=== PATIENT | female | born 1940 | race Two or more races ===

== ENCOUNTER 2018-08-11 21:02 | Inpatient (IN) | payer MEDICARE, MEDICAID ==
[~2018-08-11] VITALS: Ht 167.6 cm; Wt 71.7 kg
[2018-08-11] MEDS ORDERED: ENALAPRIL MALEA20 MG ORAL (21:13)
[2018-08-11 21:14] VITALS: BP 170/77
[2018-08-11] MEDS ORDERED: Morphine Sulfate 4mg/ml Inj (IV/IM USE ONLY) IVP ONE (21:30)
[2018-08-11] MEDS ORDERED: Isovue-300 100ml vial INJ PRN (21:30)
[2018-08-11 21:51] LABS: APPEARANCE,URINE SLIGHTLY CLOUDY; BILIRUBIN, URINE NEGATIVE (NEGATIVE); GLUCOSE, URINE (UA) NEGATIVE (NEGATIVE); KETONES,URINE NEGATIVE (NEGATIVE); LEUKOCYTE ESTERASE ,URINE 3+ (NEGATIVE); NITRITE,URINE NEGATIVE (NEGATIVE); PH,URINE 7 (4.5-8.0); PROTEIN,URINE 3+ (NEGATIVE); UROBILINOGEN,URINE 1 MG/DL (0.0-1.0)
[2018-08-11 22:03] LABS: COLOR,URINE RED
[2018-08-11 22:15] VITALS: BP 153/71
[2018-08-11 22:24] LABS: BASOPHILS % (AUTO) 0.5 % (0.0-2.0); EOSINOPHILS % (AUTO) 0.8 % (0.0-3.0); HEMATOCRIT 41.2 % (37.0-47.0); LYMPHOCYTES % (AUTO) 18.3 % (20.0-45.0); MEAN CORPUSCULAR VOLUME 86 FL (80-99); MONOCYTES % (AUTO) 6.1 % (1.0-10.0); NEUTROPHILS % (AUTO) 74.3 % (45.0-75.0); PLATELET COUNT 242 K/UL (150-450); RED BLOOD COUNT 4.79 M/UL (4.20-5.40); WHITE BLOOD COUNT 8.9 K/UL (4.8-10.8)
[2018-08-11 22:28] LABS: ANION GAP 10 mmol/L (5-15); BLOOD UREA NITROGEN 13 mg/dL (7-18); CALCIUM 9.2 MG/DL (8.5-10.1); CARBON DIOXIDE 27 MMOL/L (21-32); CHLORIDE 106 MMOL/L (98-107); CREATININE 0.7 MG/DL (0.55-1.30); POTASSIUM 3.2 MMOL/L (3.5-5.1); SODIUM 143 MMOL/L (136-145)
[2018-08-11 22:33] LABS: ALANINE AMINOTRANSFERASE 42 U/L (12-78); ALBUMIN 3.2 G/DL (3.4-5.0); ALBUMIN/GLOBULIN RATIO 0.8 (1.0-2.7); ALKALINE PHOSPHATASE 125 U/L (46-116); ASPARTATE AMINO TRANSFERASE 27 U/L (15-37); BILIRUBIN,TOTAL 0.5 MG/DL (0.2-1.0)
[2018-08-11] MEDS ORDERED: Hydromorphone 0.5mg/0.5ml inj IVP ONE (23:30)
[2018-08-11 23:48] VITALS: BP 164/60
[2018-08-12] VITALS (7 sets, daily range): BP systolic 136–166; BP diastolic 64–101
[2018-08-12] MEDS ORDERED: cefTRIAXone 1 GM in NS 55 ML IVPB ONE ×2
--- NOTE | 2018-08-12 00:14 | Emergency Room Report ---
History of Present Illness General Chief Complaint: Female Urogenital Problems Source: Patient, Family Member Present Illness HPI Patient noted blood in her urine. This started this morning. She had some pain in her back yesterday. In addition to that she's got some pain throughout her abdomen and left flank. She's never had this problem before. She denies any fevers but has felt feverish. She also felt chills. She's felt nauseated without any vomiting or diarrhea. She states she has dysuria also. The pain is 9/10 and constant. Is not worse when she changes position. No diarrhea. She has arthritis and has an ibrahima wrap on her L knee. It has been causing pain. No warmth or skin changes there. Allergies: Uncoded Allergies: PENICILLN (Allergy, Unknown, 08/11/18) Patient History Past Medical History: see triage record, HTN, other - rheumatoid arthritis, hyperlipidemia Social History: Denies: smoking, alcohol use Social History Narrative with daughter Now: No Reviewed Nursing Documentation: PMH: Agreed; PSxH: Agreed Review of Systems All Other Systems: negative except mentioned in HPI Physical Exam Vital Signs Date Time Temp Pulse Resp B/P (MAP) Pulse Ox O2 Delivery O2 Flow Rate FiO2 08/11/18 21:06 99.2 99 16 180/100 97 Room Air 99.1 Sp02 EP Interpretation: reviewed, normal General Appearance: well appearing, no apparent distress, GCS 15 Head: normocephalic, atraumatic Eyes: bilateral eye normal inspection, bilateral eye PERRL ENT: moist mucus membranes Neck: supple Respiratory: lungs clear, normal breath sounds Cardiovascular #1: regular rate, rhythm Cardiovascular #2: 2+ radial (R) Gastrointestinal: normal inspection, normal bowel sounds, no mass, non- distended, tenderness - L flank anteriorly Musculoskeletal: gait/station normal, normal range of motion, other - lumbar tenderness, ibrahima on L knee Neurologic: alert, oriented x3, grossly normal Psychiatric: mood/affect normal Skin: warm/dry, other - small ulcer R little toe Medical Decision Making Diagnostic Impression: Primary Impression: Flank pain Additional Impressions: Hematuria Qualified Codes: R31.0 - Gross hematuria Bilateral renal cysts Hypokalemia ER Course Patient presents with back pain and hematuria. DDx; stone, CA, UTI, pyelonephritis, AAA amongst others. Evaluation with EKG, CT abdomen/pelvis and labs. Patient treated with IV hydration and analgesia. Labs with normal WBC, H/H. CMP with minimally elevated glucose, alk phos. UA with hematuria without significant pyuria. CT with post jaun changes and renal cysts. High renal stone R. Pain still significant. Dilaudid given. Stone could cause this, however, it seems pain more on L. As still with significant pain needs observation and repeat evaluation and possible consultation from urology. Patient admitted med Dr. Neumann, Dr. Esparza contacted. Dilaudid repeated with improvement. Laboratory Tests Test 08/11/18 21:25 08/11/18 21:45 Urine Color Red Urine Appearance Slightly cloudy Urine pH 7 (4.5-8.0) Urine Specific [place] 1.010 (1.005-1.035) Urine Protein 3+ (NEGATIVE) H Urine Glucose (UA) Negative (NEGATIVE) Urine Ketones Negative (NEGATIVE) Urine Blood 5+ (NEGATIVE) H Urine Nitrite Negative (NEGATIVE) Urine Bilirubin Negative (NEGATIVE) Urine Urobilinogen 1 MG/DL (0.0-1.0) H Urine Leukocyte Esterase 3+ (NEGATIVE) H Urine RBC Tntc /HPF (0 - 2) H Urine WBC 5-10 /HPF (0 - 2) H Urine Squamous Epithelial Cells Few /LPF (NONE/OCC) Urine Bacteria Moderate /HPF (NONE) H White Blood Count 8.9 K/UL (4.8-10.8) Red Blood Count 4.79 M/UL (4.20-5.40) Hemoglobin 14.0 G/DL (12.0-16.0) Hematocrit 41.2 % (37.0-47.0) Mean Corpuscular Volume 86 FL (80-99) Mean Corpuscular Hemoglobin 29.2 PG (27.0-31.0) Mean Corpuscular Hemoglobin Concent 33.9 G/DL (32.0-36.0) Red Cell Distribution Width 11.0 % (11.6-14.8) L Platelet Count 242 K/UL (150-450) Mean Platelet Volume 8.6 FL (6.5-10.1) Neutrophils (%) (Auto) 74.3 % (45.0-75.0) Lymphocytes (%) (Auto) 18.3 % (20.0-45.0) L Monocytes (%) (Auto) 6.1 % (1.0-10.0) Eosinophils (%) (Auto) 0.8 % (0.0-3.0) Basophils (%) (Auto) 0.5 % (0.0-2.0) Prothrombin Time 10.5 SEC (9.30-11.50) Prothrombin Time INR 1.0 (0.9-1.1) PTT 30 SEC (23-33) Sodium Level 143 MMOL/L (136-145) Potassium Level 3.2 MMOL/L (3.5-5.1) L Chloride Level 106 MMOL/L (98-107) Carbon Dioxide Level 27 MMOL/L (21-32) Anion Gap 10 mmol/L (5-15) Blood Urea Nitrogen 13 mg/dL (7-18) Creatinine 0.7 MG/DL (0.55-1.30) Estimate Glomerular Filtration Rate mL/min (>60) Glucose Level 110 MG/DL (74-106) H Uric Acid 4.6 MG/DL (2.6-7.2) Calcium Level 9.2 MG/DL (8.5-10.1) Total Bilirubin 0.5 MG/DL (0.2-1.0) Aspartate Amino Transferase (AST) 27 U/L (15-37) Alanine Aminotransferase (ALT) 42 U/L (12-78) Alkaline Phosphatase 125 U/L (46-116) H Troponin I 0.000 ng/mL (0.000-0.056) Total Protein 7.2 G/DL (6.4-8.2) Albumin 3.2 G/DL (3.4-5.0) L Globulin 4.0 g/dL Albumin/Globulin Ratio 0.8 (1.0-2.7) L Lipase 150 U/L (73-393) EKG Diagnostic Results Rate: normal Rhythm: NSR ST Segments: no acute changes Rhythm Strip Diag. Results EP Interpretation: yes Rhythm: NSR, no PVC's, no ectopy CT/MRI/US Diagnostic Results CT/MRI/US Diagnostic Results : Imaging Test Ordered: abd pelvis Impression Bi-basilar atelectasis and left lower lobe 6 mm nodule. Post cholecystectomy. Bilateral renal hypodensities lesions measuring up to 2.2 cm on the left which could be a cyst with several septations. Right intrarenal 3 mm calculus. Diverticulosis without diverticulitis. Right fat-containing inguinal hernia. Last Vital Signs Date Time Temp Pulse Resp B/P (MAP) Pulse Ox O2 Delivery O2 Flow Rate FiO2 08/12/18 02:41 Room Air 08/12/18 01:30 97.6 80 15 141/81 94 97.6 Status: improved Disposition: ADMITTED INPATIENT Condition: Serious Referrals: NON PHYSICIAN (PCP) Mauri Freeman M.D. Aug 12, 2018 00:14
[2018-08-12] MEDS ORDERED: Hydromorphone 0.5mg/0.5ml inj IVP ONE ×2 (00:30)
[2018-08-12] MEDS ORDERED: Hydromorphone 0.5mg/0.5ml inj IVP PRN (03:15)
[2018-08-12] MEDS ORDERED: Enoxaparin 40mg Inj SUBQ SCH (09:00)
[2018-08-12 09:50] LABS: BASOPHILS % (AUTO) 0.4 % (0.0-2.0); EOSINOPHILS % (AUTO) 0.9 % (0.0-3.0); HEMATOCRIT 39.4 % (37.0-47.0); HEMOGLOBIN 13.2 G/DL (12.0-16.0); MEAN CORPUSCULAR VOLUME 85 FL (80-99); MONOCYTES % (AUTO) 5.7 % (1.0-10.0); PLATELET COUNT 212 K/UL (150-450); RED BLOOD COUNT 4.63 M/UL (4.20-5.40); RED CELL DISTRIBUTION WIDTH 11.2 % (11.6-14.8); WHITE BLOOD COUNT 6.9 K/UL (4.8-10.8)
[2018-08-12 10:05] LABS: ANION GAP 8 mmol/L (5-15); BLOOD UREA NITROGEN 12 mg/dL (7-18); CALCIUM 8.7 MG/DL (8.5-10.1); CARBON DIOXIDE 27 MMOL/L (21-32); CHLORIDE 109 MMOL/L (98-107); CREATININE 0.6 MG/DL (0.55-1.30); POTASSIUM 3.4 MMOL/L (3.5-5.1); SODIUM 144 MMOL/L (136-145)
--- NOTE | 2018-08-12 11:33 | Consultation ---
History of Present Illness General Date patient seen: Aug 12, 2018 Chief Complaint: Female Urogenital Problems Reason for Consultation: abdominal pain Present Illness HPI 78 year old female presented to ED with complaints of abdominal discomfort, nausea, and blood in urine. Admitted for care and management. Surgery called to evaluate for abdominal pain. Patient seen, chart reviewed, patient examined. States that since admission abdominal pain has resolved. was cramping mid abdominal discomfort and left flank pain. 01/03. currently only has discomfort with palpation. intermittent nausea but no emesis. no changes in bowel habits. did note blood in urine which prompted ED visit. Allergies: Uncoded Allergies: PENICILLN (Allergy, Unknown, 08/11/18) Medication History Scheduled Enalapril Maleate* (Enalapril Maleate*), 20 MG ORAL OD, (Reported) Patient History History Provided By: Patient, Family Member, PMD Healthcare decision maker Resuscitation status Full Code Advanced Directive on File Past Medical/Surgical History Past Medical/Surgical History: (1) Hypokalemia (2) Hematuria (3) Flank pain (4) Bilateral renal cysts (5) Pulmonary nodule Review of Systems All Other Systems: negative except mentioned in HPI Physical Exam General Appearance: no apparent distress Lines, tubes and drains: peripheral HEENT: mucous membranes moist Neck: normal inspection Respiratory/Chest: normal breath sounds, no respiratory distress, no accessory muscle use Cardiovascular/Chest: normal rate, regular rhythm Abdomen: normal bowel sounds, soft, no organomegaly, no mass, tender - mild tenderness in epigastric region Extremities: normal inspection Skin Exam: warm/dry Neurologic: alert, oriented x 3 Last 24 Hour Vital Signs Date Time Temp Pulse Resp B/P (MAP) Pulse Ox O2 Delivery O2 Flow Rate FiO2 08/12/18 09:13 145/75 08/12/18 09:00 Room Air 08/12/18 08:00 98.9 77 18 136/68 (90) 95 98.9 08/12/18 04:00 98.8 74 18 138/64 (88) 94 98.8 08/12/18 02:41 Room Air 08/12/18 02:10 97.9 78 19 139/79 (99) 94 97.9 08/12/18 01:30 97.6 80 15 141/81 94 Room Air 97.6 08/12/18 01:30 97.6 80 15 141/81 94 Room Air 08/12/18 00:45 99.2 08/11/18 23:48 75 20 164/60 100 08/11/18 23:35 99.2 08/11/18 22:30 99.2 08/11/18 22:15 76 18 153/71 95 Room Air 08/11/18 22:00 99.2 08/11/18 21:14 99.1 85 16 170/77 97 Room Air 99.1 08/11/18 21:06 99.2 99 16 180/100 97 Room Air 99.1 Intake and Output 08/11/18 08/12/18 19:00 07:00 Intake Total 225 ml Balance 225 ml Intake IV Total 225 ml # Voids 2 Laboratory Tests Test 08/11/18 21:25 08/11/18 21:45 08/12/18 09:25 Urine Color Red Urine Appearance Slightly cloudy Urine pH 7 (4.5-8.0) Urine Specific [place] 1.010 (1.005-1.035) Urine Protein 3+ (NEGATIVE) H Urine Glucose (UA) Negative (NEGATIVE) Urine Ketones Negative (NEGATIVE) Urine Blood 5+ (NEGATIVE) H Urine Nitrite Negative (NEGATIVE) Urine Bilirubin Negative (NEGATIVE) Urine Urobilinogen 1 MG/DL (0.0-1.0) H Urine Leukocyte Esterase 3+ (NEGATIVE) H Urine RBC Tntc /HPF (0 - 2) H Urine WBC 5-10 /HPF (0 - 2) H Urine Squamous Epithelial Cells Few /LPF (NONE/OCC) Urine Bacteria Moderate /HPF (NONE) H White Blood Count 8.9 K/UL (4.8-10.8) 6.9 K/UL (4.8-10.8) Red Blood Count 4.79 M/UL (4.20-5.40) 4.63 M/UL (4.20-5.40) Hemoglobin 14.0 G/DL (12.0-16.0) 13.2 G/DL (12.0-16.0) Hematocrit 41.2 % (37.0-47.0) 39.4 % (37.0-47.0) Mean Corpuscular Volume 86 FL (80-99) 85 FL (80-99) Mean Corpuscular Hemoglobin 29.2 PG (27.0-31.0) 28.5 PG (27.0-31.0) Mean Corpuscular Hemoglobin Concent 33.9 G/DL (32.0-36.0) 33.5 G/DL (32.0-36.0) Red Cell Distribution Width 11.0 % (11.6-14.8) L 11.2 % (11.6-14.8) L Platelet Count 242 K/UL (150-450) 212 K/UL (150-450) Mean Platelet Volume 8.6 FL (6.5-10.1) 9.5 FL (6.5-10.1) Neutrophils (%) (Auto) 74.3 % (45.0-75.0) 78.0 % (45.0-75.0) H Lymphocytes (%) (Auto) 18.3 % (20.0-45.0) L 15.0 % (20.0-45.0) L Monocytes (%) (Auto) 6.1 % (1.0-10.0) 5.7 % (1.0-10.0) Eosinophils (%) (Auto) 0.8 % (0.0-3.0) 0.9 % (0.0-3.0) Basophils (%) (Auto) 0.5 % (0.0-2.0) 0.4 % (0.0-2.0) Prothrombin Time 10.5 SEC (9.30-11.50) Prothromb Time International Ratio 1.0 (0.9-1.1) Activated Partial Thromboplast Time 30 SEC (23-33) Sodium Level 143 MMOL/L (136-145) 144 MMOL/L (136-145) Potassium Level 3.2 MMOL/L (3.5-5.1) L 3.4 MMOL/L (3.5-5.1) L Chloride Level 106 MMOL/L (98-107) 109 MMOL/L (98-107) H Carbon Dioxide Level 27 MMOL/L (21-32) 27 MMOL/L (21-32) Anion Gap 10 mmol/L (5-15) 8 mmol/L (5-15) Blood Urea Nitrogen 13 mg/dL (7-18) 12 mg/dL (7-18) Creatinine 0.7 MG/DL (0.55-1.30) 0.6 MG/DL (0.55-1.30) Estimat Glomerular Filtration Rate mL/min (>60) mL/min (>60) Glucose Level 110 MG/DL (74-106) H 106 MG/DL (74-106) Uric Acid 4.6 MG/DL (2.6-7.2) Calcium Level 9.2 MG/DL (8.5-10.1) 8.7 MG/DL (8.5-10.1) Total Bilirubin 0.5 MG/DL (0.2-1.0) Aspartate Amino Transf (AST/SGOT) 27 U/L (15-37) Alanine Aminotransferase (ALT/SGPT) 42 U/L (12-78) Alkaline Phosphatase 125 U/L (46-116) H Troponin I 0.000 ng/mL (0.000-0.056) Total Protein 7.2 G/DL (6.4-8.2) Albumin 3.2 G/DL (3.4-5.0) L Globulin 4.0 g/dL Albumin/Globulin Ratio 0.8 (1.0-2.7) L Lipase 150 U/L (73-393) Height (Feet): 5 Height (Inches): 6.00 Weight (Pounds): 158 Medications Current Medications Medications (Trade) Dose Ordered Sig/Marta Route PRN Reason Start Time Stop Time Status Last Admin Dose Admin Acetaminophen (Tylenol) 650 mg Q4H PRN ORAL Mild Pain (Pain Scale 1-3) 08/12/18 03:15 09/11/18 03:14 Ceftriaxone Sodium 1 gm/ Dextrose 55 ml @ 110 mls/hr Q24H IVPB 08/12/18 22:00 08/19/18 21:59 Dextrose (Dextrose 50%) 25 ml Q30M PRN IV Hypoglycemia 08/12/18 03:15 09/11/18 03:14 Dextrose (Dextrose 50%) 50 ml Q30M PRN IV Hypoglycemia 08/12/18 03:15 09/11/18 03:14 Dextrose/ Electrolytes 1,000 ml @ 75 mls/hr [id number] IV 08/12/18 04:00 09/11/18 03:59 08/12/18 03:40 Enalapril Maleate (Vasotec) 10 mg EVERY 12 HOURS ORAL 08/12/18 09:00 09/11/18 08:59 08/12/18 09:13 Enoxaparin Sodium (Lovenox) 40 mg Q24H SUBQ 08/12/18 09:00 09/11/18 08:59 Famotidine (Pepcid) 40 mg DAILY ORAL 08/12/18 09:00 09/11/18 08:59 08/12/18 09:10 Hydromorphone HCl (Dilaudid) 0.5 mg Q4H PRN IVP For Pain 08/12/18 03:15 08/19/18 03:14 Ondansetron HCl (Zofran) 4 mg Q6H PRN IVP Nausea & Vomiting 08/12/18 03:15 09/11/18 03:14 Assessment/Plan Problem List: (1) Flank pain Assessment & Plan: abdominal pain / left flank pain. resolving since admission. +nausea. no emesis no acute surgical intervention necessary likely GI related pending imaging. trend labs thank you. will follow with recs. ICD Codes: R10.9 - Unspecified abdominal pain SNOMED: [id number] Status: stable Steve Tolbert Aug 12, 2018 11:33
--- NOTE | 2018-08-12 14:00 | Diagnostic Imaging Report ---
Clinical Indication: Abdominal pain and hematuria Technique: No oral contrast utilized, per emergency room physician request IV administration nonionic contrast. Venous phase spiral acquisition obtained through the abdomen and pelvis. Multiplanar reconstructions were generated. Total dose length product 656.46 and 195 mGycm. CTDIvol(s) 13.65 and 12.64 mGy. Dose reduction achieved using automated exposure control Comparison: none Findings: There is a 3 mm calculus in the lower pole of the right renal collecting system. There are parapelvic and cortical cysts on the left. There are bilateral subcentimeter low-attenuation renal lesions which are too small to characterize. No hydronephrosis or ureteral calculi demonstrated. The bladder is grossly unremarkable. The liver demonstrates equivocal slight surface nodularity inferiorly, is normal in size. There are a few subcentimeter low-attenuation liver lesions in the left lobe, too small to characterize. A punctate calcification is also seen in the left lobe. There is evidence of prior cholecystectomy. The extrahepatic bile ducts and central intrahepatic bile ducts are mildly dilated. No downstream obstructive lesion is demonstrated. The pancreas, spleen, adrenals are unremarkable. No retroperitoneal or mesenteric mass or adenopathy. Normal uterus and adnexal structures. No pelvic mass or adenopathy. There is colonic diverticulosis. No evidence of diverticulitis. No small bowel distention. No free or loculated intraperitoneal gas or fluid. The appendix is not definitely identified, but no findings to suggest acute appendicitis are evident. There is a tiny umbilical hernia which contains only fat. There is a small right inguinal hernia which contains only fat. The distal esophagus and stomach are unremarkable. There is a duodenal diverticulum. The included lung bases demonstrate groundglass opacity, interstitial septal thickening, and compressive atelectatic changes. There is a 6 mm subpleural nodule in the posterior medial left lung base. The heart is mildly enlarged. The bones demonstrate degenerative spondylosis changes. Impression: 6 mm left lower lobe lung nodule. Recommend further CT follow-up in 6-12 months per Fleischner guidelines Basilar pulmonary parenchymal groundglass opacities, interstitial septal thickening, compressive atelectatic changes. Groundglass opacities and interstitial changes could indicate congestive heart failure 3 mm nonobstructive right lower pole renal calyceal calculus No other acute renal abnormality or acute findings to suggest etiology of stated clinical history of hematuria Left renal and parapelvic cysts. Subcentimeter low-attenuation renal lesions which are too small to characterize, most likely benign simple cortical cysts. No further follow-up necessary Equivocal hepatic surface nodularity, could indicate early cirrhotic change. Correlate with clinical history and findings Extrahepatic and central intrahepatic biliary ductal dilatation. No definite downstream obstructive lesion. Suspect related to age and postcholecystectomy state, but occult downstream obstruction not excludable. Correlate with liver function tests, consider MRCP or nuclear medicine biliary scan for further evaluation if clinically indicated Subcentimeter low-attenuation liver lesions, too small to characterize, most likely benign simple cysts or bile hamartomas Colonic diverticulosis. No evidence of diverticulitis Other findings as noted, including degenerative spondylosis, cardiomegaly, small fat-containing umbilical and right inguinal hernias, duodenal diverticulum, old granulomatous disease within the liver This agrees with the preliminary interpretation provided overnight by [facility] teleradiology service. The CT scanner at [facility] is accredited by the [employer] and the scans are performed using protocols designed to limit radiation exposure to as low as reasonably achievable to attain images of sufficient resolution adequate for diagnostic evaluation.
--- NOTE | 2018-08-12 16:00 | Cardiology Report ---
APPROVED REPORT EKG Measurement Heart [id number] [place] [id number]-1 [id number] Normal sinus rhythm Incomplete right bundle branch block Nonspecific ST and T wave abnormality Abnormal ECG
--- NOTE | 2018-08-12 18:31 | Consultation ---
Consult Note Consult Note 78-year-old female presents with abdominal discomfort nausea and blood in the urine. The patient now admitted for further evaluation. The patient appears to be fairly poor historian. The patient did undergo CT of the abdomen. Incidentally a 6 mm left lower lobe lung nodule was noted. The patient also has evidence of parenchymal groundglass opacities with interstitial septal thickening and atelectatic changes. There are no documented pulmonary changes from prior and no prior pulmonary history. The patient currently denies shortness of breath cough sputum production or hemoptysis Past medical history Renal cysts, hypertension, Social history no clear history of smoking or drinking reported, patient is a full code, patient is retired Medications/allergies reviewed and reconciled Review of system All 10 points reviewed and appeared to be otherwise negative Physical examination vital signs 136/68, 77, 99, 18, 95% on room air WDWN NAD clear breath sounds bilaterally without rhonchi or wheeze [id number] without MRG NABS nontender no HSM no CCE nonfocal mild confusion Labs Test 08/11/18 21:25 08/11/18 21:45 08/12/18 09:25 Urine Color Red Urine Appearance Slightly cloudy Urine pH 7 (4.5-8.0) Urine Specific [place] 1.010 (1.005-1.035) Urine Protein 3+ (NEGATIVE) Urine Glucose (UA) Negative (NEGATIVE) Urine Ketones Negative (NEGATIVE) Urine Blood 5+ (NEGATIVE) Urine Nitrite Negative (NEGATIVE) Urine Bilirubin Negative (NEGATIVE) Urine Urobilinogen 1 MG/DL (0.0-1.0) Urine Leukocyte Esterase 3+ (NEGATIVE) Urine RBC Tntc /HPF (0 - 2) Urine WBC 5-10 /HPF (0 - 2) Urine Squamous Epithelial Cells Few /LPF (NONE/OCC) Urine Bacteria Moderate /HPF (NONE) White Blood Count 8.9 K/UL (4.8-10.8) 6.9 K/UL (4.8-10.8) Red Blood Count 4.79 M/UL (4.20-5.40) 4.63 M/UL (4.20-5.40) Hemoglobin 14.0 G/DL (12.0-16.0) 13.2 G/DL (12.0-16.0) Hematocrit 41.2 % (37.0-47.0) 39.4 % (37.0-47.0) Mean Corpuscular Volume 86 FL (80-99) 85 FL (80-99) Mean Corpuscular Hemoglobin 29.2 PG (27.0-31.0) 28.5 PG (27.0-31.0) Mean Corpuscular Hemoglobin Concent 33.9 G/DL (32.0-36.0) 33.5 G/DL (32.0-36.0) Red Cell Distribution Width 11.0 % (11.6-14.8) 11.2 % (11.6-14.8) Platelet Count 242 K/UL (150-450) 212 K/UL (150-450) Mean Platelet Volume 8.6 FL (6.5-10.1) 9.5 FL (6.5-10.1) Neutrophils (%) (Auto) 74.3 % (45.0-75.0) 78.0 % (45.0-75.0) Lymphocytes (%) (Auto) 18.3 % (20.0-45.0) 15.0 % (20.0-45.0) Monocytes (%) (Auto) 6.1 % (1.0-10.0) 5.7 % (1.0-10.0) Eosinophils (%) (Auto) 0.8 % (0.0-3.0) 0.9 % (0.0-3.0) Basophils (%) (Auto) 0.5 % (0.0-2.0) 0.4 % (0.0-2.0) Prothrombin Time 10.5 SEC (9.30-11.50) Prothromb Time International Ratio 1.0 (0.9-1.1) Activated Partial Thromboplast Time 30 SEC (23-33) Sodium Level 143 MMOL/L (136-145) 144 MMOL/L (136-145) Potassium Level 3.2 MMOL/L (3.5-5.1) 3.4 MMOL/L (3.5-5.1) Chloride Level 106 MMOL/L (98-107) 109 MMOL/L (98-107) Carbon Dioxide Level 27 MMOL/L (21-32) 27 MMOL/L (21-32) Anion Gap 10 mmol/L (5-15) 8 mmol/L (5-15) Blood Urea Nitrogen 13 mg/dL (7-18) 12 mg/dL (7-18) Creatinine 0.7 MG/DL (0.55-1.30) 0.6 MG/DL (0.55-1.30) Estimat Glomerular Filtration Rate mL/min (>60) mL/min (>60) Glucose Level 110 MG/DL (74-106) 106 MG/DL (74-106) Uric Acid 4.6 MG/DL (2.6-7.2) Calcium Level 9.2 MG/DL (8.5-10.1) 8.7 MG/DL (8.5-10.1) Total Bilirubin 0.5 MG/DL (0.2-1.0) Aspartate Amino Transf (AST/SGOT) 27 U/L (15-37) Alanine Aminotransferase (ALT/SGPT) 42 U/L (12-78) Alkaline Phosphatase 125 U/L (46-116) Troponin I 0.000 ng/mL (0.000-0.056) Total Protein 7.2 G/DL (6.4-8.2) Albumin 3.2 G/DL (3.4-5.0) Globulin 4.0 g/dL Albumin/Globulin Ratio 0.8 (1.0-2.7) Lipase 150 U/L (73-393) IMPRESSION Lung nodule, patchy changes on CT, consider mild point edema versus viral pneumonitis, hypertension PLAN At present would need follow-up CT in 6 months to confirm stability and thereafter likely in 18 months Would consider further evaluation of pulmonary edema and consider BNP and echocardiogram No clear need for antibiotics from a pulmonary standpoint Monitor clinically for change and await further surgical recommendations We will monitor with you and assess for worsening respiratory symptoms and consider further intervention if needed impression, plan, and exam edited and reviewed in detail care discussed with Jordon Martinez MD Aug 12, 2018 18:31
--- NOTE | 2018-08-12 20:30 | History and Physical Report ---
DATE OF ADMISSION: 08/11/2018 REASON FOR ADMISSION: 1. Flank pain. 2. Hematuria. HISTORY OF PRESENT ILLNESS: The patient is a 78-year-old female who is admitted overnight for further evaluation and care of one to two day onset of flank pain and started to notice some blood in her urine yesterday. In the emergency room, she was complaining of 9/10 constant pain, which has since resolved. CT of the abdomen and pelvis demonstrated bilateral renal hypodensity lesions 2.2 cm on the left, which could represent a cyst with septations along with a right intrarenal 3 mm calculus. Currently, the patient is not hungry and says her abdominal flank pain has resolved. ALLERGIES: To penicillin. PAST MEDICAL HISTORY: 1. Hypertension. 2. Rheumatoid arthritis. 3. Hyperlipidemia. SOCIAL HISTORY: No tobacco, alcohol, or illicit drug use. FAMILY HISTORY: Positive for diabetes and hypertension. PHYSICAL EXAMINATION: VITAL SIGNS: Blood pressure 138/64, pulse oximetry 94% on room air, respiratory rate 18, pulse 74, and temperature 98.8. GENERAL: The patient is awake and alert, not in distress. HEENT: Extraocular muscles intact. No lymphadenopathy noted. CARDIOVASCULAR: S1 and S2. No rubs or gallops. PULMONARY: Clear to auscultation bilaterally. No rales, rhonchi, or wheezes. ABDOMEN: Nondistended and nontender. EXTREMITIES: No edema noted. LABORATORY DATA: Labs dated 08/11/2018, potassium 3.2, sodium 143, BUN 13, creatinine 0.7, glucose 110. Alkaline phosphatase 125, AST, ALT normal. Albumin 3.2. Lipase 150. White cell count 8.9, hemoglobin 14, and platelet count 242,000. ASSESSMENT AND PLAN: 1. Hematuria with flank pain at this time with an intrarenal calculus. Concern is for the possibility that the patient did pass a kidney stone vs UTI We will consult Urology for further evaluation and management along with the complex renal cyst. 2. Hematuria. We will continue Rocephin until evaluation by Urology. 3. Hypertension. We will continue CESAR inhibitor. 4. DVT prophylaxis with Lovenox. 5. Left lower lobe nodule. We will consult Dr. Banerjee, Pulmonary. Francisco Castañeda MD DR: SHARON JOB#: [id number] CC: TABITHA
[2018-08-12] MEDS ORDERED: Zolpidem 5mg tab ORAL PRN (21:15)
[2018-08-12] MEDS: cefTRIAXone 1gm/D5W 55ml IVPB SCH ×2 (21:33)
[2018-08-13] VITALS (7 sets, daily range): BP systolic 106–160; BP diastolic 67–111
[2018-08-13] MEDS ORDERED: LORazepam Inj 2mg/ml 1ml IV SCH (04:00)
--- NOTE | 2018-08-13 08:29 | Nephrology Progress Note ---
Assessment/Plan Assessment/Plan A/P 1) Flank Pain/Hematuria- resolved - likley due to passed stone and current UTI - no intervention required, appreciate Urology assistance 2) Hematuira- Abx for UTI 3) Acute Encephalopathy- likley to one dose of Ambien, discontinued 4) Hypokalemia- replace Subjective Date patient seen: Aug 13, 2018 Time patient seen: 08:27 ROS Limited/Unobtainable: Yes Allergies: Uncoded Allergies: PENICILLN (Allergy, Unknown, 08/11/18) All Systems: reviewed and negative except above Subjective Patient abd pain resolved. Confused this am Objective Last 24 Hour Vital Signs Date Time Temp Pulse Resp B/P (MAP) Pulse Ox O2 Delivery O2 Flow Rate FiO2 08/13/18 08:05 160/111 08/13/18 08:05 160/111 08/13/18 08:00 98.6 118 19 160/111 (127) 98 98.6 08/13/18 04:00 97.5 97 19 150/90 (110) 95 97.5 08/13/18 00:00 98.9 91 18 154/84 (107) 94 98.9 08/12/18 21:12 166/101 08/12/18 21:00 Room Air 08/12/18 20:00 99.4 91 19 166/101 (122) 96 99.4 08/12/18 16:00 98.0 79 20 139/72 (94) 97 98.0 08/12/18 12:00 98.0 76 18 148/88 (108) 96 98.0 08/12/18 09:13 145/75 08/12/18 09:00 Room Air Intake and Output 08/12/18 08/13/18 19:00 07:00 Intake Total 2000 ml 150 ml Balance 2000 ml 150 ml Intake Oral 1100 ml IV Total 900 ml 150 ml # Voids 4 3 Laboratory Tests 08/12/18 09:25: White Blood Count 6.9, Red Blood Count 4.63, Hemoglobin 13.2, Hematocrit 39.4, Mean Corpuscular Volume 85, Mean Corpuscular Hemoglobin 28.5, Mean Corpuscular Hemoglobin Concent 33.5, Red Cell Distribution Width 11.2L, Platelet Count 212, Mean Platelet Volume 9.5, Neutrophils (%) (Auto) 78.0H, Lymphocytes (%) (Auto) 15.0L, Monocytes (%) (Auto) 5.7, Eosinophils (%) (Auto) 0.9, Basophils (%) (Auto ) 0.4, Sodium Level 144, Potassium Level 3.4L, Chloride Level 109H, Carbon Dioxide Level 27, Anion Gap 8, Blood Urea Nitrogen 12, Creatinine 0.6, Estimat Glomerular Filtration Rate , Glucose Level 106, Calcium Level 8.7 Height (Feet): 5 Height (Inches): 6.00 Weight (Pounds): 158 General Appearance: confused EENT: normal ENT inspection Neck: normal alignment, supple Cardiovascular: normal rate, regular rhythm Respiratory/Chest: lungs clear, normal breath sounds Abdomen: non tender, soft Edema: no edema noted Arm (L), no edema noted Arm (R), no edema noted Leg (L), no edema noted Leg (R), no edema noted Pedal (L), no edema noted Pedal (R), no edema noted Generalized Francisco Castañeda MD Aug 13, 2018 08:29
--- NOTE | 2018-08-13 11:01 | General Surgery Progress Note ---
General Surgery-Progress Note Subjective Additional Comments no acute events. improving Objective Last 24 Hour Vital Signs Date Time Temp Pulse Resp B/P (MAP) Pulse Ox O2 Delivery O2 Flow Rate FiO2 08/13/18 09:00 Room Air 08/13/18 08:05 160/111 08/13/18 08:05 160/111 08/13/18 08:00 98.6 118 19 160/111 (127) 98 98.6 08/13/18 04:00 97.5 97 19 150/90 (110) 95 97.5 08/13/18 00:00 98.9 91 18 154/84 (107) 94 98.9 08/12/18 21:12 166/101 08/12/18 21:00 Room Air 08/12/18 20:00 99.4 91 19 166/101 (122) 96 99.4 08/12/18 16:00 98.0 79 20 139/72 (94) 97 98.0 08/12/18 12:00 98.0 76 18 148/88 (108) 96 98.0 I&O Intake and Output 08/12/18 08/13/18 19:00 07:00 Intake Total 2000 ml 225 ml Balance 2000 ml 225 ml Intake Oral 1100 ml IV Total 900 ml 225 ml # Voids 4 3 Drains: none Cardiovascular: RSR Respiratory: clear Abdomen: soft, flat, non-tender, present bowel sounds Extremities: no cyanosis Plan Problems: (1) Flank pain Assessment & Plan: CT Findings: 3 mm nonobstructive right lower pole renal calyceal calculus. Extrahepatic and central intrahepatic biliary ductal dilatation. No definite downstream obstructive lesion. Suspect related to age and postcholecystectomy state, but occult downstream obstruction not excludable. Subcentimeter low-attenuation liver lesions, too small to characterize, most likely benign simple cysts or bile hamartomas. Colonic diverticulosis. No evidence of diverticulitis. Other findings as noted, including degenerative spondylosis, cardiomegaly, small fat-containing umbilical and right inguinal hernias, duodenal diverticulum, old granulomatous disease within the liver abdominal pain / left flank pain. resolving since admission. +nausea. no emesis no acute surgical intervention necessary possible etiology right renal calculus trend labs thank you. will follow with brown. Steve Tolbert Aug 13, 2018 11:01
--- NOTE | 2018-08-13 11:23 | Diagnostic Imaging Report ---
Indication: Headache and head trauma Technique: Contiguous 5 mm thick transaxial imaging of the head obtained in a Siemens Sensation [address] scanner. Soft tissue and bone windows generated. Automatic Exposure Control was utilized. Total Dose length Product (DLP): 1323.[address] Dose Index Volume (CTDIvol): 70.38 mGy Comparison: none Findings: There is moderate prominence of the ventricles, basal cisterns, and cerebral sulci consistent with atrophy. Moderate, nonspecific, white matter hypoattenuation is noted throughout the brain consistent with chronic small vessel disease. There is no midline shift, edema, acute hemorrhage, mass effect, or abnormal extra-axial fluid collections. Bones and extra osseous soft tissues are unremarkable. Impression: No acute intracranial bleed, mass effect or edema. Moderate atrophy of the brain. Evidence of chronic small vessel disease involving white matter tracts. [facility] has communicated the preliminary results to the Emergency Department. Their findings are largely concordant with this report. The CT scanner at [facility] is accredited by the [employer] and the scans are performed using dose optimization techniques as appropriate to a performed exam including Automatic Exposure control.
--- NOTE | 2018-08-13 17:00 | Consultation ---
DATE OF CONSULTATION: 08/13/2018 UROLOGY CONSULTATION ATTENDING/CONSULTING PHYSICIAN: Francisco Castañeda M.D. CHIEF COMPLAINT AND HISTORY OF PRESENT ILLNESS: I was asked by Dr. Castañeda to evaluate this 78-year-old female regarding history of reported gross hematuria and flank pain in the setting of a small kidney stone and likely urinary tract infection. Briefly, the patient has a history of 1 to 2 days onset of flank pain. She also noted some blood in her urine yesterday. Workup in emergency room revealed a 3 mm right renal stone and a complex renal cyst. Additionally there was evidence of urinary tract infection. Given the above, I was asked to evaluate the patient. The patient is currently confused and cannot provide much information. Most of the information is gathered from the chart. PAST MEDICAL HISTORY: 1. Hypertension. 2. Rheumatoid arthritis. 3. Hyperlipidemia. PAST SURGICAL HISTORY: Unknown. MEDICATIONS: Please see the chart for current medications and administration details. Briefly, the patient is receiving Rocephin for antibiotic coverage and is also on Lovenox despite the history of bleeding ALLERGIES: Include penicillin. SOCIAL HISTORY: Unremarkable tobacco, alcohol, or drug use. FAMILY HISTORY: Notable for diabetes and hypertension. REVIEW OF SYSTEMS: A 14-system review of systems limited as the patient cannot cooperate much with questioning at that time. PHYSICAL EXAMINATION: GENERAL: The patient is an elderly, female, awake and alert, not fully oriented. No obvious distress. HEENT: NC/AT. Oropharynx clear. NECK: Supple. CHEST: Within normal limits. ABDOMEN: Soft, nontender, and nondistended. BACK: No CVA tenderness to percussion. NEUROLOGIC: Notable for confusion, it is otherwise deferred as the patient cannot cooperate with the exam. LABORATORY DATA: Sodium 144, potassium 3.4, chloride 109, bicarb 27, BUN 12, creatinine 0.6, glucose 106, calcium 8.7. LFTs within normal limits. Alkaline phosphatase 125. Troponin negative. PT, PTT, and INR within normal limits. White blood cell count 6.9, hematocrit 39.4, platelets 212. Urinalysis, specific gravity 1.010, pH 7.0. Dip test notable for 2+ protein, 5+ occult blood, and 3+ leukocyte esterase, and 1+ urobilinogen. Microanalysis with too numerous to count red blood cells per high-power field, 5 to 10 white blood cells per high-power field and moderate bacteria seen. DIAGNOSTIC IMAGING: CT scan of the abdomen and pelvis reveals a 3 mm calculus in the lower pole of the right kidney. There are parapelvic and cortical cysts on the left. No other acute renal abnormality or acute finding to suggest etiology of history of hematuria. Other findings as delineated on the report. ASSESSMENT AND PLAN: In summary, the patient is a 78-year-old female with a history of gross hematuria and flank pain. The symptoms have both since resolved here in the hospital. Workup for the same with a CT scan revealed a 3 mm stone only in the lower pole of the right kidney and incidental small renal cysts. Additionally, the patient was found to have evidence of urinary tract infection. This is being treated with Rocephin. She is still receiving Lovenox despite her history of hematuria. It appears that the patient's hematuria is likely secondary to urinary tract infection. The stone that she has is small, nonobstructing, and requires no treatment, it is also too small to likely have caused gross hematuria. The cyst that she has in her kidneys are simple and also would not cause gross hematuria and require no treatment. It is possible the patient might have passed a small stone and that caused some hematuria but there is no evidence of a stone within the bladder or any other finding to suggest that on CT scan. As such, as noted above it is likely secondary to urinary tract infection. I recommend continuing Rocephin and send the urine culture. Antibiotics can be adjusted as necessary. In addition, the patient's Lovenox should be held until her hematuria is fully resolved. Thank you for allowing me participate in the care of this nice lady. Please do not hesitate to contact me with any questions that you may further have regarding her care. I will see her with you as needed. Kody Carter M.D. DR: Josiah JOB#: [id number] CC:
--- NOTE | 2018-08-13 20:09 | Pulmonology Progress Note ---
Assessment/Plan Assessment/Plan IMPRESSION Lung nodule, patchy changes on CT, consider mild point edema versus viral pneumonitis, hypertension PLAN follow-up CT in 6 months to confirm stability and thereafter likely in 18 months monitor fluid status No clear need for antibiotics from a pulmonary standpoint overnight reviewed We will monitor with you and assess for worsening respiratory symptoms and consider further intervention if needed impression, plan, and exam edited and reviewed in detail care discussed with RN Subjective Allergies: Coded Allergies: PENICILLINS (Unverified Allergy, Unknown, 08/13/18) Uncoded Allergies: PENICILLN (Allergy, Unknown, 08/11/18) Subjective care noted no distress appears comfortable overall Objective Last 24 Hour Vital Signs Date Time Temp Pulse Resp B/P (MAP) Pulse Ox O2 Delivery O2 Flow Rate FiO2 08/13/18 16:00 98.1 86 16 106/67 (80) 97 98.1 08/13/18 12:00 97.2 93 18 145/84 (104) 95 97.2 08/13/18 09:00 Room Air 08/13/18 08:20 138/81 (100) 08/13/18 08:05 160/111 08/13/18 08:05 160/111 08/13/18 08:00 98.6 118 19 160/111 (127) 98 98.6 08/13/18 04:00 97.5 97 19 150/90 (110) 95 97.5 08/13/18 00:00 98.9 91 18 154/84 (107) 94 98.9 08/12/18 21:12 166/101 08/12/18 21:00 Room Air Intake and Output 08/12/18 08/13/18 19:00 07:00 Intake Total 2000 ml 225 ml Balance 2000 ml 225 ml Intake Oral 1100 ml IV Total 900 ml 225 ml # Voids 4 3 Objective WDWN NAD clear breath sounds bilaterally without rhonchi or wheeze [id number] without MRG NABS nontender no HSM no CCE nonfocal Microbiology Date/Time Source Procedure Growth Status 08/11/18 21:25 Urine,Clean Catch Urine Culture - Preliminary Gram Negative Bacillus 1 Resulted Current Medications Medications (Trade) Dose Ordered Sig/Marta Route PRN Reason Start Time Stop Time Status Last Admin Dose Admin Acetaminophen (Tylenol) 650 mg Q4H PRN ORAL Mild Pain (Pain Scale 1-3) 08/12/18 03:15 09/11/18 03:14 08/12/18 21:15 Ceftriaxone Sodium 1 gm/ Dextrose 55 ml @ 110 mls/hr Q24H IVPB 08/12/18 22:00 08/19/18 21:59 08/12/18 21:33 Clonidine HCl (Catapres Tab) 0.1 mg Q4H PRN ORAL For High BP(SBP>150) 08/12/18 21:31 09/11/18 21:30 08/13/18 08:05 Dextrose (Dextrose 50%) 25 ml Q30M PRN IV Hypoglycemia 08/12/18 03:15 09/11/18 03:14 Dextrose (Dextrose 50%) 50 ml Q30M PRN IV Hypoglycemia 08/12/18 03:15 09/11/18 03:14 Dextrose/ Electrolytes 1,000 ml @ 75 mls/hr [id number] IV 08/12/18 04:00 09/11/18 03:59 08/12/18 17:53 Enalapril Maleate (Vasotec) 10 mg EVERY 12 HOURS ORAL 08/12/18 09:00 09/11/18 08:59 08/13/18 08:05 Famotidine (Pepcid) 40 mg DAILY ORAL 08/12/18 09:00 09/11/18 08:59 08/13/18 08:06 Hydromorphone HCl (Dilaudid) 0.5 mg Q4H PRN IVP For Pain 08/12/18 03:15 08/19/18 03:14 08/12/18 12:41 Mirtazapine (Remeron) 7.5 mg BEDTIME ORAL 08/13/18 21:00 09/12/18 20:59 Ondansetron HCl (Zofran) 4 mg Q6H PRN IVP Nausea & Vomiting 08/12/18 03:15 09/11/18 03:14 Quetiapine Fumarate (SEROquel) 12.5 mg Q6H PRN ORAL agitation 08/13/18 13:00 09/12/18 12:59 Jordon Banerjee MD Aug 13, 2018 20:09
[2018-08-13] MEDS: cefTRIAXone 1gm/D5W 55ml IVPB SCH ×2 (21:27)
--- NOTE | 2018-08-14 00:30 | Consultation ---
DATE OF CONSULTATION: 08/13/2018 HISTORY OF PRESENT ILLNESS: This is a 78-year-old female who is Malay-speaking. Apparently, the patient came in last night. She was administered Ambien prior to sleep and several hours after taking the Ambien, the patient came out of the bed and was confused and disoriented to self. Today, the daughter was in the room. We used the Malay-speaking nurse. The patient appeared to be alert and oriented to time, self, place, and situation she is in. She has episodes of confusion. The patient takes Ambien for insomnia. The patient is having memory issues and is forgetful. The patient agreed to discontinue the Ambien and administer Remeron if necessary. PAST PSYCHIATRIC HISTORY: Anxiety disorder and insomnia. PAST MEDICAL HISTORY: Includes hypertension, rheumatic arthritis, and hyperlipidemia. ALLERGIES: Include penicillin. SUBSTANCE ABUSE HISTORY: No history of illicit drug use or alcohol. MENTAL STATUS EXAMINATION: The patient is alert and oriented to time, self, place, and situation. Mood is anxious. Affect is constricted. Congruent with mood. Thought process is concrete. Thought content, no suicidal or homicidal ideation. ASSESSMENT: 1. Anxiety disorder. 2. Encephalopathy. PLAN: 1. The patient will be started on Seroquel p.r.n. 2. Remeron p.o. nightly. 3. Discontinue the Ambien. 4. We will continue to follow and readjust the medications. Holley Padilla M.D. DR: TENISHA JOB#: [id number] CC:
[2018-08-14 04:46] VITALS: BP 124/44
[2018-08-14 08:00] VITALS: BP 131/61
--- NOTE | 2018-08-14 08:00 | Nephrology Progress Note ---
Assessment/Plan Assessment/Plan A/P 1) Flank Pain/Hematuria- resolved - likley due to passed stone and current UTI - PO Abx at DC 2) Hematuria- Abx for UTI po 3) Acute Encephalopathy- likley to one dose of Ambien, discontinued and patient much improved 4) Hypokalemia- replace prn DC tomorr to home with HH or SNF Subjective Date patient seen: Aug 14, 2018 Time patient seen: 07:58 ROS Limited/Unobtainable: No Allergies: Coded Allergies: PENICILLINS (Unverified Allergy, Unknown, 08/13/18) Uncoded Allergies: PENICILLN (Allergy, Unknown, 08/11/18) All Systems: reviewed and negative except above Subjective Patient abd pain resolved and oriented once again Objective Last 24 Hour Vital Signs Date Time Temp Pulse Resp B/P (MAP) Pulse Ox O2 Delivery O2 Flow Rate FiO2 08/14/18 04:46 97.2 59 18 124/44 (70) 93 97.2 08/13/18 20:58 Room Air 08/13/18 20:51 137/70 08/13/18 20:48 97.3 73 17 137/70 (92) 94 97.3 08/13/18 16:00 98.1 86 16 106/67 (80) 97 98.1 08/13/18 12:00 97.2 93 18 145/84 (104) 95 97.2 08/13/18 09:00 Room Air 08/13/18 08:20 138/81 (100) 08/13/18 08:05 160/111 08/13/18 08:05 160/111 08/13/18 08:00 98.6 118 19 160/111 (127) 98 98.6 Intake and Output 08/13/18 08/14/18 19:00 07:00 Intake Total 1230 ml 55 ml Balance 1230 ml 55 ml Intake Oral 480 ml IV Total 750 ml 55 ml # Voids 3 2 # Bowel Movements 1 Laboratory Tests 08/14/18 07:00: Sodium Level [Pending], Potassium Level [Pending], Chloride Level [Pending], Carbon Dioxide Level [Pending], Blood Urea Nitrogen [Pending], Creatinine [ Pending], Estimat Glomerular Filtration Rate [Pending], Glucose Level [Pending] , Calcium Level [Pending] Height (Feet): 5 Height (Inches): 6.00 Weight (Pounds): 158 General Appearance: no apparent distress, alert EENT: normal ENT inspection Neck: normal alignment, supple Cardiovascular: normal rate, regular rhythm Respiratory/Chest: lungs clear, normal breath sounds Abdomen: non tender, soft Edema: no edema noted Arm (L), no edema noted Arm (R), no edema noted Leg (L), no edema noted Leg (R), no edema noted Pedal (L), no edema noted Pedal (R), no edema noted Generalized Francisco Castañeda MD Aug 14, 2018 08:00
[2018-08-14 08:20] LABS: ANION GAP 10 mmol/L (5-15); BLOOD UREA NITROGEN 11 mg/dL (7-18); CALCIUM 9.3 MG/DL (8.5-10.1); CARBON DIOXIDE 26 MMOL/L (21-32); CHLORIDE 107 MMOL/L (98-107); CREATININE 0.7 MG/DL (0.55-1.30); POTASSIUM 3.3 MMOL/L (3.5-5.1); SODIUM 142 MMOL/L (136-145)
--- NOTE | 2018-08-14 11:13 | General Surgery Progress Note ---
General Surgery-Progress Note Subjective Symptoms: improved, pain absent, tolerating diet, passing flatus Objective Last 24 Hour Vital Signs Date Time Temp Pulse Resp B/P (MAP) Pulse Ox O2 Delivery O2 Flow Rate FiO2 08/14/18 09:00 Room Air 08/14/18 08:46 131/61 08/14/18 08:00 98.1 77 20 131/61 (84) 94 98.1 08/14/18 04:46 97.2 59 18 124/44 (70) 93 97.2 08/13/18 20:58 Room Air 08/13/18 20:51 137/70 08/13/18 20:48 97.3 73 17 137/70 (92) 94 97.3 08/13/18 16:00 98.1 86 16 106/67 (80) 97 98.1 08/13/18 12:00 97.2 93 18 145/84 (104) 95 97.2 I&O Intake and Output 08/13/18 08/14/18 19:00 07:00 Intake Total 1230 ml 55 ml Balance 1230 ml 55 ml Intake Oral 480 ml IV Total 750 ml 55 ml # Voids 3 2 # Bowel Movements 1 Drains: none Cardiovascular: RSR Respiratory: clear Abdomen: soft, flat, non-tender, present bowel sounds Extremities: no cyanosis Laboratory Tests Test 08/14/18 07:00 Sodium Level 142 MMOL/L (136-145) Potassium Level 3.3 MMOL/L (3.5-5.1) L Chloride Level 107 MMOL/L (98-107) Carbon Dioxide Level 26 MMOL/L (21-32) Anion Gap 10 mmol/L (5-15) Blood Urea Nitrogen 11 mg/dL (7-18) Creatinine 0.7 MG/DL (0.55-1.30) Estimat Glomerular Filtration Rate mL/min (>60) Glucose Level 97 MG/DL (74-106) Calcium Level 9.3 MG/DL (8.5-10.1) Plan Problems: (1) Flank pain Assessment & Plan: CT Findings: 3 mm nonobstructive right lower pole renal calyceal calculus. Extrahepatic and central intrahepatic biliary ductal dilatation. No definite downstream obstructive lesion. Suspect related to age and postcholecystectomy state, but occult downstream obstruction not excludable. Subcentimeter low-attenuation liver lesions, too small to characterize, most likely benign simple cysts or bile hamartomas. Colonic diverticulosis. No evidence of diverticulitis. Other findings as noted, including degenerative spondylosis, cardiomegaly, small fat-containing umbilical and right inguinal hernias, duodenal diverticulum, old granulomatous disease within the liver abdominal pain / left flank pain. resolving since admission. +nausea. no emesis no acute surgical intervention necessary trend labs thank you. will follow with recs. Steve Tolbert Aug 14, 2018 11:13
[2018-08-14 12:00] VITALS: BP 141/78
--- NOTE | 2018-08-14 14:04 | Diagnostic Imaging Report ---
Indication: Left hip pain Technique: 2 views of the left hip Comparison: none Findings: The joint spaces are preserved. No acute fractures. No dislocations. Bones are demineralized. Impression: No acute process
--- NOTE | 2018-08-14 14:05 | Diagnostic Imaging Report ---
Indication: Right hip pain Technique: 2 views of the right hip Comparison: none Findings: No acute fractures. No dislocations. Joint spaces are preserved. Bones appear demineralized. Impression: No acute process
[2018-08-14 16:00] VITALS: BP 129/74
--- NOTE | 2018-08-14 19:20 | Pulmonology Progress Note ---
Assessment/Plan Assessment/Plan Assessment/Plan IMPRESSION Lung nodule, patchy changes on CT, consider mild point edema versus viral pneumonitis, hypertension PLAN follow-up CT in 6 months to confirm stability and thereafter likely in 18 months monitor fluid status No clear need for antibiotics from a pulmonary standpoint overnight reviewed We will monitor with you and assess for worsening respiratory symptoms and consider further intervention if needed impression, plan, and exam edited and reviewed in detail care discussed with RN Subjective Allergies: Coded Allergies: PENICILLINS (Unverified Allergy, Unknown, 08/13/18) Uncoded Allergies: PENICILLN (Allergy, Unknown, 08/11/18) Subjective care noted no distress appears comfortable overall Objective Last 24 Hour Vital Signs Date Time Temp Pulse Resp B/P (MAP) Pulse Ox O2 Delivery O2 Flow Rate FiO2 08/13/18 16:00 98.1 86 16 106/67 (80) 97 98.1 08/13/18 12:00 97.2 93 18 145/84 (104) 95 97.2 08/13/18 09:00 Room Air 08/13/18 08:20 138/81 (100) 08/13/18 08:05 160/111 08/13/18 08:05 160/111 08/13/18 08:00 98.6 118 19 160/111 (127) 98 98.6 08/13/18 04:00 97.5 97 19 150/90 (110) 95 97.5 08/13/18 00:00 98.9 91 18 154/84 (107) 94 98.9 08/12/18 21:12 166/101 08/12/18 21:00 Room Air Intake and Output 08/12/18 08/13/18 19:00 07:00 Intake Total 2000 ml 225 ml Balance 2000 ml 225 ml Intake Oral 1100 ml IV Total 900 ml 225 ml # Voids 4 3 Objective WDWN NAD clear breath sounds bilaterally without rhonchi or wheeze [id number] without MRG NABS nontender no HSM no CCE nonfocal Microbiology Date/Time Source Procedure Growth Status 08/11/18 21:25 Urine,Clean Catch Urine Culture - Preliminary Gram Negative Bacillus 1 Resulted Current Medications Medications (Trade) Dose Ordered Sig/Marta Route PRN Reason Start Time Stop Time Status Last Admin Dose Admin Acetaminophen (Tylenol) 650 mg Q4H PRN ORAL Mild Pain (Pain Scale 1-3) 08/12/18 03:15 09/11/18 03:14 08/12/18 21:15 Ceftriaxone Sodium 1 gm/ Dextrose 55 ml @ 110 mls/hr Q24H IVPB 08/12/18 22:00 08/19/18 21:59 08/12/18 21:33 Clonidine HCl (Catapres Tab) 0.1 mg Q4H PRN ORAL For High BP(SBP>150) 08/12/18 21:31 09/11/18 21:30 08/13/18 08:05 Dextrose (Dextrose 50%) 25 ml Q30M PRN IV Hypoglycemia 08/12/18 03:15 09/11/18 03:14 Dextrose (Dextrose 50%) 50 ml Q30M PRN IV Hypoglycemia 08/12/18 03:15 09/11/18 03:14 Dextrose/ Electrolytes 1,000 ml @ 75 mls/hr [id number] IV 08/12/18 04:00 09/11/18 03:59 08/12/18 17:53 Enalapril Maleate (Vasotec) 10 mg EVERY 12 HOURS ORAL 08/12/18 09:00 09/11/18 08:59 08/13/18 08:05 Famotidine (Pepcid) 40 mg DAILY ORAL 08/12/18 09:00 09/11/18 08:59 08/13/18 08:06 Hydromorphone HCl (Dilaudid) 0.5 mg Q4H PRN IVP For Pain 08/12/18 03:15 08/19/18 03:14 08/12/18 12:41 Mirtazapine (Remeron) 7.5 mg BEDTIME ORAL 08/13/18 21:00 09/12/18 20:59 Ondansetron HCl (Zofran) 4 mg Q6H PRN IVP Nausea & Vomiting 08/12/18 03:15 09/11/18 03:14 Quetiapine Fumarate (SEROquel) 12.5 mg Q6H PRN ORAL agitation 08/13/18 13:00 09/12/18 12:59 Subjective ROS Limited/Unobtainable: No Allergies: Coded Allergies: PENICILLINS (Unverified Allergy, Unknown, 08/13/18) Uncoded Allergies: PENICILLN (Allergy, Unknown, 08/11/18) Objective Last 24 Hour Vital Signs Date Time Temp Pulse Resp B/P (MAP) Pulse Ox O2 Delivery O2 Flow Rate FiO2 08/14/18 16:00 98.1 74 18 129/74 (92) 94 98.1 08/14/18 12:00 97.9 70 20 141/78 (99) 94 97.9 08/14/18 09:00 Room Air 08/14/18 08:46 131/61 08/14/18 08:00 98.1 77 20 131/61 (84) 94 98.1 08/14/18 04:46 97.2 59 18 124/44 (70) 93 97.2 08/13/18 20:58 Room Air 08/13/18 20:51 137/70 08/13/18 20:48 97.3 73 17 137/70 (92) 94 97.3 Intake and Output 08/13/18 08/14/18 19:00 07:00 Intake Total 1230 ml 55 ml Balance 1230 ml 55 ml Intake Oral 480 ml IV Total 750 ml 55 ml # Voids 3 2 # Bowel Movements 1 Microbiology Date/Time Source Procedure Growth Status 08/11/18 21:25 Urine,Clean Catch Urine Culture - Final Escherichia Coli Complete Laboratory Tests 08/14/18 07:00: Sodium Level 142, Potassium Level 3.3L, Chloride Level 107, Carbon Dioxide Level 26, Anion Gap 10, Blood Urea Nitrogen 11, Creatinine 0.7, Estimat Glomerular Filtration Rate , Glucose Level 97, Calcium Level 9.3 Current Medications Medications (Trade) Dose Ordered Sig/Marta Route PRN Reason Start Time Stop Time Status Last Admin Dose Admin Acetaminophen (Tylenol) 650 mg Q4H PRN ORAL Mild Pain (Pain Scale 1-3) 08/12/18 03:15 09/11/18 03:14 08/12/18 21:15 Ciprofloxacin (Cipro 250mg tab) 250 mg EVERY 12 HOURS ORAL 08/14/18 09:00 08/21/18 08:59 08/14/18 08:46 Clonidine HCl (Catapres Tab) 0.1 mg Q4H PRN ORAL For High BP(SBP>150) 08/12/18 21:31 09/11/18 21:30 08/13/18 08:05 Dextrose (Dextrose 50%) 25 ml Q30M PRN IV Hypoglycemia 08/12/18 03:15 09/11/18 03:14 Dextrose (Dextrose 50%) 50 ml Q30M PRN IV Hypoglycemia 08/12/18 03:15 09/11/18 03:14 Dextrose/ Electrolytes 1,000 ml @ 75 mls/hr [id number] IV 08/12/18 04:00 09/11/18 03:59 08/14/18 08:47 Enalapril Maleate (Vasotec) 10 mg EVERY 12 HOURS ORAL 08/12/18 09:00 09/11/18 08:59 08/14/18 08:46 Famotidine (Pepcid) 40 mg DAILY ORAL 08/12/18 09:00 09/11/18 08:59 08/14/18 08:46 Mirtazapine (Remeron) 7.5 mg BEDTIME ORAL 08/13/18 21:00 09/12/18 20:59 08/13/18 20:51 Ondansetron HCl (Zofran) 4 mg Q6H PRN IVP Nausea & Vomiting 08/12/18 03:15 09/11/18 03:14 Mauri Sotomayor MD Aug 14, 2018 19:20
[2018-08-14 20:00] VITALS: BP 151/64
--- NOTE | 2018-08-14 22:14 | General Progress Note ---
Assessment/Plan Assessment/Plan 1. Anxiety disorder. 2. Encephalopathy. PLAN: 1. The patient will be started on Seroquel p.r.n. 2. Remeron p.o. nightly. 3. Discontinue the Ambien. 4. We will continue to follow and readjust the medications. Subjective Date patient seen: Aug 14, 2018 Neurologic/Psychiatric: Reports: anxiety, depressed, emotional problems Allergies: Coded Allergies: PENICILLINS (Unverified Allergy, Unknown, 08/13/18) Uncoded Allergies: PENICILLN (Allergy, Unknown, 08/11/18) Objective Last 24 Hour Vital Signs Date Time Temp Pulse Resp B/P (MAP) Pulse Ox O2 Delivery O2 Flow Rate FiO2 08/14/18 21:00 151/64 08/14/18 16:00 98.1 74 18 129/74 (92) 94 98.1 08/14/18 12:00 97.9 70 20 141/78 (99) 94 97.9 08/14/18 09:00 Room Air 08/14/18 08:46 131/61 08/14/18 08:00 98.1 77 20 131/61 (84) 94 98.1 08/14/18 04:46 97.2 59 18 124/44 (70) 93 97.2 Intake and Output 08/13/18 08/14/18 19:00 07:00 Intake Total 1230 ml 55 ml Balance 1230 ml 55 ml Intake Oral 480 ml IV Total 750 ml 55 ml # Voids 3 2 # Bowel Movements 1 Laboratory Tests 08/14/18 07:00: Sodium Level 142, Potassium Level 3.3L, Chloride Level 107, Carbon Dioxide Level 26, Anion Gap 10, Blood Urea Nitrogen 11, Creatinine 0.7, Estimat Glomerular Filtration Rate , Glucose Level 97, Calcium Level 9.3 Height (Feet): 5 Height (Inches): 6.00 Weight (Pounds): 158 General Appearance: no apparent distress, alert Neurologic: depressed affect Holley Padilla MD Aug 14, 2018 22:14
[2018-08-15] VITALS: BP 147/82
[2018-08-15 04:00] VITALS: BP 155/63
[2018-08-15 07:32] LABS: ANION GAP 10 mmol/L (5-15); BLOOD UREA NITROGEN 10 mg/dL (7-18); CALCIUM 8.6 MG/DL (8.5-10.1); CARBON DIOXIDE 23 MMOL/L (21-32); CHLORIDE 110 MMOL/L (98-107); CREATININE 0.7 MG/DL (0.55-1.30); POTASSIUM 3.6 MMOL/L (3.5-5.1); SODIUM 143 MMOL/L (136-145)
[2018-08-15 08:00] VITALS: BP 156/81
[2018-08-15 08:23] VITALS: BP 156/81
--- NOTE | 2018-08-15 08:58 | Nephrology Progress Note ---
Assessment/Plan Assessment/Plan A/P 1) Flank Pain/Hematuria- resolved - likley due to passed stone and current UTI - PO Abx Cipro 250 mg bid - DC today with HH 2) Hematuria- PO Abx for UTI 3) Acute Encephalopathy- likley to one dose of Ambien - resolved 4) Hypokalemia- resolved DC to home with HH/PT Subjective Date patient seen: Aug 15, 2018 Time patient seen: 08:56 ROS Limited/Unobtainable: No Allergies: Coded Allergies: PENICILLINS (Unverified Allergy, Unknown, 08/13/18) Uncoded Allergies: PENICILLN (Allergy, Unknown, 08/11/18) Subjective Patient abd pain resolved and stable for DC today Objective Last 24 Hour Vital Signs Date Time Temp Pulse Resp B/P (MAP) Pulse Ox O2 Delivery O2 Flow Rate FiO2 08/15/18 08:23 156/81 08/15/18 08:00 97.9 74 20 156/81 (106) 97 97.9 08/15/18 04:00 99.4 71 20 155/63 (93) 98 99.4 08/15/18 00:00 99.5 83 20 147/82 (103) 95 99.5 08/14/18 21:00 Room Air 08/14/18 21:00 151/64 08/14/18 20:00 98.6 86 20 151/64 (93) 95 98.6 08/14/18 16:00 98.1 74 18 129/74 (92) 94 98.1 08/14/18 12:00 97.9 70 20 141/78 (99) 94 97.9 08/14/18 09:00 Room Air Intake and Output 08/14/18 08/15/18 19:00 07:00 Intake Total 520 ml Balance 520 ml Intake Oral 520 ml # Voids 3 2 Laboratory Tests 08/15/18 06:20: Sodium Level 143, Potassium Level 3.6, Chloride Level 110H, Carbon Dioxide Level 23, Anion Gap 10, Blood Urea Nitrogen 10, Creatinine 0.7, Estimat Glomerular Filtration Rate , Glucose Level 112H, Calcium Level 8.6 Height (Feet): 5 Height (Inches): 6.00 Weight (Pounds): 158 General Appearance: no apparent distress, alert EENT: normal ENT inspection Neck: normal alignment, supple Cardiovascular: normal rate, regular rhythm Respiratory/Chest: lungs clear, normal breath sounds Abdomen: non tender, soft Edema: no edema noted Arm (L), no edema noted Arm (R), no edema noted Leg (L), no edema noted Leg (R), no edema noted Pedal (L), no edema noted Pedal (R), no edema noted Generalized Francisco Castañeda MD Aug 15, 2018 08:58
--- NOTE | 2018-08-15 08:59 | Discharge Instructions ---
Discharge Instructions Discharge Instructions Services at Discharge: home health services Diet: 2 GM sodium (low sodium) Resume Normal Activity?: Yes Activity: light activity Follow Up Orders F/U PCP 1 week Complete 5 days of Cipro For Congestive Heart Failure Reminder Report to your physician any weight gain of 5 pounds or more in one week. Francisco Castañeda MD Aug 15, 2018 08:59
--- NOTE | 2018-08-15 10:57 | Pulmonology Progress Note ---
Assessment/Plan Assessment/Plan IMPRESSION Lung nodule, patchy changes on CT, consider mild point edema versus viral pneumonitis, hypertension PLAN follow-up CT in 6 months to confirm stability and thereafter likely in 18 months...patient aware monitor fluid status No clear need for antibiotics from a pulmonary standpoint overnight reviewed ok to dc per pulmonary but need outpatient follow up impression, plan, and exam edited and reviewed in detail care discussed with RN Subjective Allergies: Coded Allergies: PENICILLINS (Unverified Allergy, Unknown, 08/13/18) Uncoded Allergies: PENICILLN (Allergy, Unknown, 08/11/18) Subjective care noted no distress pain better dc planning noted Objective Last 24 Hour Vital Signs Date Time Temp Pulse Resp B/P (MAP) Pulse Ox O2 Delivery O2 Flow Rate FiO2 08/15/18 09:00 Room Air 08/15/18 08:23 156/81 08/15/18 08:00 97.9 74 20 156/81 (106) 97 97.9 08/15/18 04:00 99.4 71 20 155/63 (93) 98 99.4 08/15/18 00:00 99.5 83 20 147/82 (103) 95 99.5 08/14/18 21:00 Room Air 08/14/18 21:00 151/64 08/14/18 20:00 98.6 86 20 151/64 (93) 95 98.6 08/14/18 16:00 98.1 74 18 129/74 (92) 94 98.1 08/14/18 12:00 97.9 70 20 141/78 (99) 94 97.9 Intake and Output 08/14/18 08/15/18 19:00 07:00 Intake Total 520 ml Balance 520 ml Intake Oral 520 ml # Voids 3 2 Objective WDWN NAD clear breath sounds bilaterally without rhonchi or wheeze [id number] without MRG NABS nontender no HSM no CCE nonfocal Laboratory Tests 08/15/18 06:20: Sodium Level 143, Potassium Level 3.6, Chloride Level 110H, Carbon Dioxide Level 23, Anion Gap 10, Blood Urea Nitrogen 10, Creatinine 0.7, Estimat Glomerular Filtration Rate , Glucose Level 112H, Calcium Level 8.6 Current Medications Medications (Trade) Dose Ordered Sig/Marta Route PRN Reason Start Time Stop Time Status Last Admin Dose Admin Acetaminophen (Tylenol) 650 mg Q4H PRN ORAL Mild Pain (Pain Scale 1-3) 08/12/18 03:15 09/11/18 03:14 08/15/18 06:03 Ciprofloxacin (Cipro 250mg tab) 250 mg EVERY 12 HOURS ORAL 08/14/18 09:00 08/21/18 08:59 08/15/18 08:23 Clonidine HCl (Catapres Tab) 0.1 mg Q4H PRN ORAL For High BP(SBP>150) 08/12/18 21:31 09/11/18 21:30 08/13/18 08:05 Dextrose (Dextrose 50%) 25 ml Q30M PRN IV Hypoglycemia 08/12/18 03:15 09/11/18 03:14 Dextrose (Dextrose 50%) 50 ml Q30M PRN IV Hypoglycemia 08/12/18 03:15 09/11/18 03:14 Dextrose/ Electrolytes 1,000 ml @ 75 mls/hr [id number] IV 08/12/18 04:00 09/11/18 03:59 08/14/18 23:07 Enalapril Maleate (Vasotec) 10 mg EVERY 12 HOURS ORAL 08/12/18 09:00 09/11/18 08:59 08/15/18 08:23 Famotidine (Pepcid) 40 mg DAILY ORAL 08/12/18 09:00 09/11/18 08:59 08/15/18 08:23 Mirtazapine (Remeron) 7.5 mg BEDTIME ORAL 08/13/18 21:00 09/12/18 20:59 08/14/18 21:00 Ondansetron HCl (Zofran) 4 mg Q6H PRN IVP Nausea & Vomiting 08/12/18 03:15 09/11/18 03:14 Jordon Banerjee MD Aug 15, 2018 10:57
--- NOTE | 2018-08-16 10:51 | Discharge Summary ---
Discharge Summary Discharge Summary _ DATE OF ADMISSION: 08/11/2018 DATE OF DISCHARGE: 08/15/2018 REASON FOR ADMISSION: 78 years old female with past medical history of hypertension, hyperlipidemia, rheumatoid arthritis, presented with hematuria and abdominal and left flank pain , constant ,9 out of 10, for 1 day. Patient also reported nausea, chills and dysuria. No fever, no vomiting. Upon evaluation blood pressure was elevated 180/100 ; low-grade fever 99.2. Urinalysis with evidence of hematuria and moderate bacteria. Laboratory workup revealed no leukocytosis, hemoglobin 14 ,hematocrit 41.2. Potassium 3.2. Troponin negative . EKG revealed normal sinus rhythm. CT of the abdomen and pelvis revealed 6 mm left lower lobe lung nodule. Basilar pulmonary parenchymal ground glass opacities Compressive atelectatic changes. Nonobstructive right lower pole renal calculus. No other acute renal abnormalities or acute findings to suggest etiology of hematuria. Left renal parapelvic cyst. Patient admitted with diagnoses of hematuria with flank pain, intrarenal calculus, possible UTI , possible passed kidney stone ,hypertension left lower lobe nodule, hypokalemia. CONSULTANTS: pulmonary Dr. Banerjee surgery Dr. Tolbert psychiatrist Dr. Padilla urologist Dr. GamaRaul [facility]SE: Patient admitted and started on IV fluids and empiric antibiotics . Urine culture revealed Escherichia coli. Antibiotic transitioned to oral. Hematuria was likely due to current urinary tract infection and possibly passing of stone. Urology seen and evaluated patient . Symptoms resolved while patient was still in the hospital. Per urologist, stone seen on CT scan was small, nonobstructive and required no treatment. It was too small to cause gross hematuria. Cyst, that she had in her kidneys also simple and would not cause gross hematuria , and require no treatment. It is possible that patient might have pass mall stone causing hematuria , but no evidence of the stones within the bladder or other findings to suggest that on CT scan. As such as noted above, per urologist, hematuria was secondary to urinary tract infection. DVT prophylaxis was hold due to hematuria . Pain management was addressed, and pain was controlled. Supportive care provided. Hemoglobin and hematocrit remained stable Blood pressure was managed with CESAR inhibitor , and remained stable. Potassium was replaced; potassium 3.6 prior to discharge . Renal parameters remained stable; nephrotoxins were avoided. Bowel regimen instituted. GI prophylaxis provided. Patient noted to become altered . CT of the head revealed no acute intracranial bleeding, mass effect or edema . It demonstrated moderate atrophy of the brain with evidence of chronic small vessel disease involving white matter tracts. Psychiatrist closely followed and diagnosed patient with nightly 90 Remeron. Reality orientation and supportive therapy provided. Acute encephalopathy was likely secondary toone dose of Ambien, which was discontinued , and patient improved to baseline. Fiscal Analyst seen and evaluated patient. Patient had evidence of lung nodule on the CT. Per fittings finisher mild pulmonary edema versus viral pneumonitis. Supplemental oxygen provided as needed to keep pulse oximetry above 92% , pulmonary toilet was on standby as needed . No evidence of respiratory distress. Follow-up CT scan of chest recommended in 6 months to confirm stability, and afterwards in 18 months . Patient may and family made aware. Patient clinically improved and was stable for discharge home with home health services . FINAL DIAGNOSES: Hematuria, likely secondary to urinary tract infection and possibly passing stone Urinary tract infection with Escherichia coli Hypokalemia- resolved Acute toxic encephalopathy -resolved Left lower lung nodule Flank pain , secondary to UTI , resolved Hypertension DISCHARGE MEDICATIONS: See Medication Reconciliation list. DISCHARGE INSTRUCTIONS: Patient was discharged home with home health services. Follow up with primary care provider in one week. I have been assigned to dictate discharge summary for this account. I was not involved in the patient's management. Jolie Patel NP Aug 16, 2018 10:51
== END 2018-08-15 11:56 | disposition home health service (06) | DRG 463 ==
LOC: EMR 21:50 → 4E 23:45 → EDBEDREQ 08-12 00:39
DX: N39.0 Urinary tract infection, site not specified (principal); G92 Toxic encephalopathy; M06.9 Rheumatoid arthritis, unspecified; R31.9 Hematuria, unspecified; B96.20 Unspecified Escherichia coli [E. coli] as the cause of diseases classified elsewhere; E87.6 Hypokalemia; R91.1 Solitary pulmonary nodule; I10 Essential (primary) hypertension; E78.5 Hyperlipidemia, unspecified; N20.0 Calculus of kidney; N28.1 Cyst of kidney, acquired; Z88.0 Allergy status to penicillin; G47.00 Insomnia, unspecified; F41.9 Anxiety disorder, unspecified
CPT/HCPCS: 36415; 70450; 73502; 74177; 80048; 80053; 81003; 83690; 84484; 84550; 85025; 85610; 85730; 87086; 87181; 93005; 96360; 96361; 99285; J2405; J8499

== ENCOUNTER 2018-08-18 10:00 | Emergency (ER) | payer MEDICARE, MEDICAID ==
[~2018-08-18] VITALS: Ht 162.6 cm; Wt 72.6 kg
[~2018-08-18 10:00] MED LIST: ENALAPRIL MALEA20 MG ORAL
[2018-08-18] MEDS ORDERED: CIPRO500 MG PO (10:11)
[2018-08-18] MEDS ORDERED: Sodium Chloride 500ML 500 ML IV ONE (10:13)
[2018-08-18 10:14] VITALS: BP 182/93
--- NOTE | 2018-08-18 10:51 | Emergency Room Report ---
History of Present Illness General Chief Complaint: Back Pain-No Injury Source: Patient, Medical Record Present Illness HPI Patient presents with complaints of low back pain Reports that she was recently in the hospital She reports having a fall after which her low back pain started More recently however she reports that last night she had woke up to the pain in the lower back taken a Tylenol And presents for continued discomfort Patient was also diagnosed with UTI and taking Cipro for that denies any chest pain or shortness of breath denies any vomiting or diarrhea Pain is 3 out of 10 worse with walking and standing Allergies: Coded Allergies: PENICILLINS (Unverified Allergy, Unknown, 08/13/18) Patient History Past Medical History: see triage record Pertinent Family History: none Reviewed Nursing Documentation: PMH: Agreed; PSxH: Agreed Nursing Documentation-PMH Past Medical History: No History, Except For Hx Hypertension: Yes Hx Pacemaker: No Hx Asthma: No Hx COPD: No Hx Diabetes: No Hx Cancer: No Hx Dialysis: No History Of Psychiatric Problem: No Hx Neurological Problems: No Hx Cerebrovascular Accident: No Hx Seizures: No Review of Systems All Other Systems: negative except mentioned in HPI Physical Exam Vital Signs Date Time Temp Pulse Resp B/P (MAP) Pulse Ox O2 Delivery O2 Flow Rate FiO2 08/18/18 10:04 98.1 73 14 182/93 94 Room Air 98.1 Sp02 EP Interpretation: reviewed, normal General Appearance: well appearing, no apparent distress Head: normocephalic, atraumatic Eyes: bilateral eye PERRL, bilateral eye EOMI ENT: hearing grossly normal, normal pharynx, TMs + canals normal, uvula midline Neck: full range of motion, supple, no meningismus, no bony tend Respiratory: lungs clear, normal breath sounds, no rhonchi, no respiratory distress, no retraction, no accessory muscle use Cardiovascular #1: normal peripheral pulses, regular rate, rhythm, no edema, no gallop, no JVD, no murmur Gastrointestinal: normal bowel sounds, non tender, soft, no mass, no organomegaly, non-distended, no guarding, no hernia, no pulsatile mass, no rebound Genitourinary: no CVA tenderness Musculoskeletal: other - Increased discomfort on palpation [id number] para spinal region. No midline step-off, patient able to stand moving both lower extremity equally Neurologic: oriented x3, responsive, certified novell administrator III-XII nml as tested, motor strength/ tone normal, sensory intact Psychiatric: mood/affect normal Skin: normal color, no rash, warm/dry, palpation normal Lymphatic: normal inspection, no adenopathy Medical Decision Making Diagnostic Impression: Primary Impression: Back pain ER Course Given the patient's history and presentation There is some correlation with the patient's fall and her discomfort X-ray imaging had been done previously however given the continued discomfort CT imaging is obtained No obvious fractures are seen patient has been ambulatory in the emergency room Blood work remains at baseline levels and urine shows improving findings And patient stable for close follow-up Labs Test 08/18/18 10:15 08/18/18 10:35 Urine Color Pale yellow Urine Appearance Clear Urine pH 5 (4.5-8.0) Urine Specific [place] 1.020 (1.005-1.035) Urine Protein Negative (NEGATIVE) Urine Glucose (UA) Negative (NEGATIVE) Urine Ketones Negative (NEGATIVE) Urine Blood 1+ (NEGATIVE) Urine Nitrite Negative (NEGATIVE) Urine Bilirubin Negative (NEGATIVE) Urine Urobilinogen Normal MG/DL (0.0-1.0) Urine Leukocyte Esterase 1+ (NEGATIVE) Urine RBC 2-4 /HPF (0 - 2) Urine WBC 2-4 /HPF (0 - 2) Urine Squamous Epithelial Cells Few /LPF (NONE/OCC) Urine Calcium Oxalate Crystals Moderate /LPF (NONE) Urine Bacteria Few /HPF (NONE) White Blood Count 5.8 K/UL (4.8-10.8) Red Blood Count 4.92 M/UL (4.20-5.40) Hemoglobin 13.8 G/DL (12.0-16.0) Hematocrit 41.5 % (37.0-47.0) Mean Corpuscular Volume 84 FL (80-99) Mean Corpuscular Hemoglobin 28.0 PG (27.0-31.0) Mean Corpuscular Hemoglobin Concent 33.2 G/DL (32.0-36.0) Red Cell Distribution Width 10.8 % (11.6-14.8) Platelet Count 250 K/UL (150-450) Mean Platelet Volume 8.3 FL (6.5-10.1) Neutrophils (%) (Auto) 62.0 % (45.0-75.0) Lymphocytes (%) (Auto) 28.4 % (20.0-45.0) Monocytes (%) (Auto) 7.5 % (1.0-10.0) Eosinophils (%) (Auto) 1.5 % (0.0-3.0) Basophils (%) (Auto) 0.5 % (0.0-2.0) Sodium Level 140 MMOL/L (136-145) Potassium Level 4.2 MMOL/L (3.5-5.1) Chloride Level 105 MMOL/L (98-107) Carbon Dioxide Level 25 MMOL/L (21-32) Anion Gap 10 mmol/L (5-15) Blood Urea Nitrogen 10 mg/dL (7-18) Creatinine 0.7 MG/DL (0.55-1.30) Estimat Glomerular Filtration Rate mL/min (>60) Glucose Level 94 MG/DL (74-106) Calcium Level 9.6 MG/DL (8.5-10.1) Total Bilirubin 0.6 MG/DL (0.2-1.0) Aspartate Amino Transf (AST/SGOT) 42 U/L (15-37) Alanine Aminotransferase (ALT/SGPT) 81 U/L (12-78) Alkaline Phosphatase 158 U/L (46-116) Total Protein 7.7 G/DL (6.4-8.2) Albumin 3.3 G/DL (3.4-5.0) Globulin 4.4 g/dL Albumin/Globulin Ratio 0.8 (1.0-2.7) Lipase 230 U/L (73-393) Rhythm Strip Diag. Results EP Interpretation: yes Rate: 77 Rhythm: NSR, no PVC's, no ectopy CT/MRI/US Diagnostic Results CT/MRI/US Diagnostic Results : Impression CT L-spineIMPRESSION: No acute injury appreciated. Moderate degenerative spondylosis as described above. Osteopenia. Atherosclerotic disease Nonobstructive right renal stone CT pelvicIMPRESSION: No acute injury appreciated. Degenerative arthrosis as described above. Atherosclerotic disease Small right inguinal hernia containing fat Diverticulosis of the colon Last Vital Signs Date Time Temp Pulse Resp B/P (MAP) Pulse Ox O2 Delivery O2 Flow Rate FiO2 08/18/18 10:14 98.1 14 182/93 94 Room Air 98.1 08/18/18 10:04 73 Status: improved Disposition: HOME, SELF-CARE Condition: Improved Scripts Acetaminophen (Tylenol) 325 Mg Tablet 650 MG ORAL Q8HR PRN for Prn Pain/Headache/Temp > 101 for 5 Days, #30 TAB 0 Refills Prov: Sudhir Casas DO 08/18/18 Methocarbamol* (ROBAXIN-750*) 750 Mg Tablet 750 MG PO TID, #21 TAB 0 Refills Prov: Sudhir Casas DO 08/18/18 Referrals: NON PHYSICIAN (PCP) Additional Instructions: Patient is provided with the discharge instructions notified to follow up with primary doctor in the next 2-3 days otherwise return to the er with any worsening symptoms. Please note that this report is being documented using Leap technology. This can lead to erroneous entry secondary to incorrect interpretation by the dictating instrument. Sudhir Casas DO Aug 18, 2018 10:51
[2018-08-18 10:55] LABS: BASOPHILS % (AUTO) 0.5 % (0.0-2.0); EOSINOPHILS % (AUTO) 1.5 % (0.0-3.0); HEMATOCRIT 41.5 % (37.0-47.0); HEMOGLOBIN 13.8 G/DL (12.0-16.0); LYMPHOCYTES % (AUTO) 28.4 % (20.0-45.0); MEAN CORPUSCULAR VOLUME 84 FL (80-99); MONOCYTES % (AUTO) 7.5 % (1.0-10.0); PLATELET COUNT 250 K/UL (150-450); RED BLOOD COUNT 4.92 M/UL (4.20-5.40); RED CELL DISTRIBUTION WIDTH 10.8 % (11.6-14.8); WHITE BLOOD COUNT 5.8 K/UL (4.8-10.8)
[2018-08-18 10:55] LABS: APPEARANCE,URINE CLEAR; BILIRUBIN, URINE NEGATIVE (NEGATIVE); COLOR,URINE PALE YELLOW; GLUCOSE, URINE (UA) NEGATIVE (NEGATIVE); KETONES,URINE NEGATIVE (NEGATIVE); LEUKOCYTE ESTERASE ,URINE 1+ (NEGATIVE); NITRITE,URINE NEGATIVE (NEGATIVE); PH,URINE 5 (4.5-8.0); PROTEIN,URINE NEGATIVE (NEGATIVE); UROBILINOGEN,URINE NORMAL MG/DL (0.0-1.0)
[2018-08-18 11:11] LABS: ANION GAP 10 mmol/L (5-15); BLOOD UREA NITROGEN 10 mg/dL (7-18); CALCIUM 9.6 MG/DL (8.5-10.1); CARBON DIOXIDE 25 MMOL/L (21-32); CHLORIDE 105 MMOL/L (98-107); CREATININE 0.7 MG/DL (0.55-1.30); POTASSIUM 4.2 MMOL/L (3.5-5.1); SODIUM 140 MMOL/L (136-145)
[2018-08-18 11:15] LABS: ALANINE AMINOTRANSFERASE 81 U/L (12-78); ALBUMIN 3.3 G/DL (3.4-5.0); ALBUMIN/GLOBULIN RATIO 0.8 (1.0-2.7); ALKALINE PHOSPHATASE 158 U/L (46-116); ASPARTATE AMINO TRANSFERASE 42 U/L (15-37); BILIRUBIN,TOTAL 0.6 MG/DL (0.2-1.0)
--- NOTE | 2018-08-18 11:30 | Diagnostic Imaging Report ---
Indication: History of the fall and trauma. Pelvic and back pain. Technique: Continuous helical transaxial imaging of the pelvis was obtained from the iliac crest to the pubic symphysis. Coronal 2-D reformats were also obtained. Study obtained in a Siemens sensation [address] Intravenous non-ionic contrast was administered. Total Dose length Product (DLP): 355.[address] Dose Index Volume (CTDIvol): 13.55 mGy Comparison: None Findings: No acute fracture identified. Bones are osteopenic in keeping with the patient's age. Arthrosis noted involving the sacroiliac joints and hips bilaterally with narrowing of the joint space, subchondral sclerosis and mild osteophyte formation. Aortoiliac calcifications are present. There is a small right inguinal hernia containing fat. Few diverticula noted in the colon. No evidence of diverticulitis. Uterus noted. IMPRESSION: No acute injury appreciated. Degenerative arthrosis as described above. Atherosclerotic disease Small right inguinal hernia containing fat Diverticulosis of the colon The CT scanner at [facility] is accredited by the [employer] and the scans are performed using dose optimization techniques as appropriate to a performed exam including Automatic Exposure control.
[2018-08-18 11:39] VITALS: BP 161/87
--- NOTE | 2018-08-18 11:43 | Diagnostic Imaging Report ---
Indication: Back pain Technique: Continuous helical transaxial imaging of the lumbar spine was obtained from the lung bases to the pubic symphysis. No IV contrast was administered. Coronal 2-D reformats were also obtained. Study obtained in a Siemens sensation [address] Total Dose length Product (DLP): 522.[address] Dose Index Volume (CTDIvol): 16.32 mGy Comparison: None Findings: There is no evidence of an acute fracture or malalignment. There is narrowing of intervertebral discs with vacuum phenomena and accompanying endplate osteophyte formation. Hypertrophied facet joints also demonstrated. There is a neural foraminal stenosis present at L3-4 L4-5 and L5-S1 bilaterally. Aorta is moderately calcified. There is a small nonobstructive stone in the lower pole of the right kidney incidentally noted. IMPRESSION: No acute injury appreciated. Moderate degenerative spondylosis as described above. Osteopenia. Atherosclerotic disease Nonobstructive right renal stone The CT scanner at [facility] is accredited by the [employer] and the scans are performed using dose optimization techniques as appropriate to a performed exam including Automatic Exposure control.
[2018-08-18] MEDS ORDERED: TYLENOL325 MG ORAL (12:37)
[2018-08-18] MEDS ORDERED: ROBAXIN-750750 MG PO (12:37)
[2018-08-18 12:52] VITALS: BP 161/87
== END 2018-08-18 12:55 | disposition home or self-care (01) ==
LOC: EMR 10:25
DX: M54.5 Low back pain (principal); M85.80 Other specified disorders of bone density and structure, unspecified site; M47.817 Spondylosis without myelopathy or radiculopathy, lumbosacral region; Z88.0 Allergy status to penicillin; N20.0 Calculus of kidney; K57.30 Diverticulosis of large intestine without perforation or abscess without bleeding; K40.90 Unilateral inguinal hernia, without obstruction or gangrene, not specified as recurrent
CPT/HCPCS: 36415; 72131; 72192; 80053; 81003; 83690; 85025; 99284